=== PATIENT | female | born 1990 | race Caucasian/White ===

== ENCOUNTER → 2016-05-30 | Outpatient (CLI) | payer BC ==
[~2016-05-30] MED LIST: MULT-506 PO; NUVVR VAGRING
== END | disposition home or self-care (01) ==
LOC: C.PAPS 08:38
PROVIDERS: ATTEND Obstetrics & Gynecology
DX: Z01.419 Encounter for gynecological examination (general) (routine) without abnormal findings (principal)

== ENCOUNTER → 2016-06-06 | Outpatient (CLI) | payer BC, OTHER ==
[2016-06-11 03:05] LABS: CHLAMYDIA TRACH RNA*** NOT DETECTED (NOT DETECTED); GC (NEIS GONORRHOEAE)RNA** NOT DETECTED (NOT DETECTED)
== END | disposition home or self-care (01) ==
LOC: C.LABSPEC 14:44
PROVIDERS: ATTEND Obstetrics & Gynecology
DX: Z11.3 Encounter for screening for infections with a predominantly sexual mode of transmission (principal)

== ENCOUNTER → 2016-07-26 | Day surgery (SDC) | payer BC ==
[2016-07-25 11:18] VITALS: Ht 152.4 cm; Wt 56.8 kg
[~2016-07-26] VITALS: Ht 152.4 cm; Wt 56.8 kg
[~2016-07-26] MED LIST changes: +LIDOCAINE HCL 2% 2 ML VIAL (20MG/ML) ONE; +PROPOFOL IV EMULSION 10 MG/ML 20 ML VIAL IV ONE
--- NOTE | 2016-07-26 13:40 | Endo History and Physical ---
History & Physical Date of Service: Jul 26, 2016. Chief Complaint: blood in stool Referring Physician: JEN Charles History of Present Illness 25 yo CF who presents for colonoscopy secondary to blood in stool. Past Surgical History Hx Cardiac Surgery: No Hx Internal Defibrillator: No Hx Pacemaker: No Hx Abdominal Surgery: No Hx of Implantable Prosthesis: No Hx Post-Op Nausea and Vomiting: No Hx Cancer Surgery: No Hx Thoracic Surgery: No Hx Orthopedic: No Hx Urinary Tract Surgery: No Family History None Social History Smoking Status: Never Smoker Hx Substance Use: No Hx Alcohol Use: Yes (3 GLASSES/WEEK) Allergies Coded Allergies: No Known Allergies (Verified , 07/26/16) Current Medications Reported Home Medications Medications Dose Route/Sig Max Daily Dose Days Date Category Multivitamin (Multivitamins) Tab 1 Tab PO DAILY 07/25/16 Reported Nuvaring (Ethinyl Estradiol) Mis 1 Ea VAGRING MONTHLY 07/25/16 Reported Vital Signs Weight (Kilograms): 56.82 Height (Feet): 5 Height (Inches): 0 Date Time Temp Pulse Resp B/P Pulse Ox O2 Delivery O2 Flow Rate FiO2 07/26/16 13:06 37.4 71 16 135/59 100 Room Air Physical Exam General Appearance: WD/WN, no apparent distress Respiratory/Chest: Auscultation: breath sounds normal Cardiovascular: Heart Auscultation: RRR Abdomen: Bowel Sounds: normal Inspection & Palpation: soft, non-distended, no tenderness, guarding & rebound Assessment and Plan Assessment: 25 yo CF who presents for colonoscopy secondary to blood in stool. Plan: Proceed with colonoscopy.
--- NOTE | 2016-07-26 14:03 | Discharge Instructions ---
Endoscopy Patient Instructions Date / Procedure(s) Performed Jul 26, 2016. Colonoscopy Allergy Information Coded Allergies: No Known Allergies (Verified , 07/26/16) Discharge Date / Findings Jul 26, 2016. Terminal ileitis s/p biopsies Internal hemorrhoids Medication Instructions Stopped Medication(s): stopped MVI 2 weeks ago OK to resume all medications today as prescribed. Reported Home Medications Medications Dose Route/Sig Max Daily Dose Days Date Category Multivitamin (Multivitamins) Tab 1 Tab PO DAILY 07/25/16 Reported Nuvaring (Ethinyl Estradiol) Mis 1 Ea VAGRING MONTHLY 07/25/16 Reported Provider Instructions Activity Restrictions - No exercising or heavy lifting for 24 hours. - Do not drink alcohol the day of the procedure. - Do not drive a car or operate machinery until the day after the procedure. - Do not make any important decisions or sign important papers in 24 hours after the procedure. Following Day: - Return to full activity which may include returning to work/school. Diet Start your diet with liquids and light foods (jello, soup, juice, toast). Then eat your usual diet if not nauseated. Treatment For Common After Affects For mild abdominal pain, bloating, or excessive gas: - Rest - Eat lightly - Lie on right side Follow-Up Information Follow-up with no PCP assigned as scheduled Anesthesia Information What You Should Know You have had a procedure that required some medicine to reduce anxiety and discomfort. This treatment is called moderate sedation. After receiving the treatment, you may be sleepy, but you will be able to breathe on your own. The effects of the treatment may last for several hours. Follow these instructions along with Activity/Diet recommendations noted above: * Do NOT do anything where dizziness or clumsiness would be dangerous. * Rest quietly at home today, then you can be up and about tomorrow. * Have a responsible person stay with you the rest of today. * You may have had an I.V. today. If so, you may take the dressing off later today. Recommendations Call your doctor if: * Trouble breathing * Continuous vomiting for more than 24 hours * Temperature above 101 degrees * Severe abdominal pain or bloating * Pain not relieved by pain medicine ordered * There is increased drainage or redness from any incision * A large amount of rectal bleeding greater than 2-3 tablespoons. (If you had a polyp/s removed or have hemorrhoids, a small amount of blood - from the rectum is to be expected.) * You have any unanswered questions or concerns. IN THE EVENT OF A SERIOUS EMERGENCY, GO TO THE NEAREST EMERGENCY ROOM Your discharge instructions were prepared by provider Jonn Cotton. Patient Instructions Signature Page Jania Sotomayor Patient (or Guardian) Signature/Date: I have read and understand the instructions given to me by my caregivers. Caregiver/RN/Doctor Signature/Date: The above-named patient and/or guardian has received patient instructions on this date. + Original Patient Signature Page (only) stays with chart. Please make copy for patient.
[2016-07-26 14:34] VITALS: BP 110/55; PULSE 64; O2SAT 100
--- NOTE | 2016-07-26 15:19 | GI REPORT ---
Procedure Date: 07/26/2016 1:36 PM Procedure: Colonoscopy Indications: Rectal bleeding Medicines: Monitored Anesthesia Care Complications: No immediate complications. Estimated Blood Loss: Estimated blood loss: none. Procedure: Pre-Anesthesia Assessment: - Prior to the procedure, a History and Physical was performed, and patient medications and allergies were reviewed. The patient's tolerance of previous anesthesia was also reviewed. The risks and benefits of the procedure and the sedation options and risks were discussed with the patient. All questions were answered, and informed consent was obtained. Prior Anticoagulants: The patient has taken no previous anticoagulant or antiplatelet agents. ASA Grade Assessment: I - A normal, healthy patient. After reviewing the risks and benefits, the patient was deemed in satisfactory condition to undergo the procedure. After I obtained informed consent, the scope was passed under direct vision. Throughout the procedure, the patient's blood pressure, pulse, and oxygen saturations were monitored continuously. The scope was introduced through the anus and advanced to the terminal ileum. The colonoscopy was performed without difficulty. The patient tolerated the procedure well. The quality of the bowel preparation was good. The terminal ileum, ileocecal valve, appendiceal orifice, and rectum were photographed. Findings: The terminal ileum contained multiple three mm ulcers. No bleeding was present. Biopsies were taken with a cold forceps for histology. Non-bleeding internal hemorrhoids were found during retroflexion. The hemorrhoids were small. Impression: - Multiple ulcers in the terminal ileum. Biopsied. - Non-bleeding internal hemorrhoids. Recommendation: - Resume previous diet. - Continue present medications. - Repeat colonoscopy for surveillance based on pathology results. - Return to primary care physician as previously scheduled. Jonn Cotton, 07/26/2016 2:06:43 PM This report has been signed electronically. Note Initiated On: 07/26/2016 1:36 PM I attest to the content of the Intraoperative Record and orders documented therein, exceptions below
--- NOTE | 2016-07-26 15:36 | Anesthesiology Progress Note ---
Anesthesia Post Op Note Date & Time Jul 26, 2016 at 15:35 Vital Signs Pain Intensity: 0 Vital Signs Past 12 Hours Date Time Temp Pulse Resp B/P Pulse Ox O2 Delivery O2 Flow Rate FiO2 07/26/16 14:34 64 16 110/55 100 Room Air 07/26/16 14:17 82 16 108/57 100 Room Air 07/26/16 14:02 62 16 106/60 98 Room Air 07/26/16 13:06 37.4 71 16 135/59 100 Room Air Notes Mental Status: alert / awake / arousable Nausea / Vomiting: adequately controlled Pain: adequately controlled Airway Patency, RR, SpO2: stable & adequate BP & HR: stable & adequate Hydration State: stable & adequate Anesthetic Complications: no major complications apparent
== END | disposition home or self-care (01) ==
LOC: C.GI 12:37
PROVIDERS: ATTEND Internal Medicine
DX: K92.1 Melena (principal); K63.3 Ulcer of intestine; K64.8 Other hemorrhoids; Z98.890 Other specified postprocedural states

== ENCOUNTER → 2017-01-04 | Day surgery (SDC) | payer BC ==
[2016-12-25 10:59] VITALS: Ht 152.4 cm; Wt 56.8 kg
[~2017-01-04] VITALS: Ht 152.4 cm; Wt 56.8 kg
[~2017-01-04] MED LIST changes: +MIDAZOLAM HCL 1 MG/ML 2ML VIAL ONE
--- NOTE | 2017-01-04 12:44 | Endo History and Physical ---
History & Physical Date of Service: Jan 04, 2017. Chief Complaint: terminal ileitis Referring Physician: KEVIN ABDALLA History of Present Illness 26 yo CF who presents for colonoscopy secondary to terminal ileitis. Past Surgical History Hx Cardiac Surgery: No Hx Internal Defibrillator: No Hx Pacemaker: No Hx Abdominal Surgery: No Hx of Implantable Prosthesis: No Hx Post-Op Nausea and Vomiting: No Hx Cancer Surgery: No Hx Thoracic Surgery: No Hx Orthopedic: No Hx Urinary Tract Surgery: No Family History None Social History Smoking Status: Never Smoker Hx Substance Use: No Hx Alcohol Use: Yes (3 GLASSES/WEEK) Allergies Coded Allergies: No Known Allergies (Verified , 12/25/16) Current Medications Reported Home Medications Medications Dose Route/Sig Max Daily Dose Days Date Category Multivitamin (Multivitamins) Tab 1 Tab PO DAILY 07/25/16 Reported Nuvaring (Ethinyl Estradiol) Mis 1 Ea VAGRING MONTHLY 07/25/16 Reported Vital Signs Weight (Kilograms): 56.82 Height (Feet): 5 Height (Inches): 0 Physical Exam General Appearance: WD/WN, no apparent distress Respiratory/Chest: Auscultation: breath sounds normal Cardiovascular: Heart Auscultation: RRR Abdomen: Bowel Sounds: normal Inspection & Palpation: soft, non-distended, no tenderness, guarding & rebound Assessment and Plan Assessment: 26 yo CF who presents for colonoscopy secondary to terminal ileitis. Plan: Proceed with colonoscopy.
--- NOTE | 2017-01-04 13:39 | GI REPORT ---
Procedure Date: 01/04/2017 1:10 PM Procedure: Colonoscopy Indications: Ulcers of terminal ileum Medicines: Monitored Anesthesia Care Complications: No immediate complications. Estimated Blood Loss: Estimated blood loss: none. Procedure: Pre-Anesthesia Assessment: - Prior to the procedure, a History and Physical was performed, and patient medications and allergies were reviewed. The patient's tolerance of previous anesthesia was also reviewed. The risks and benefits of the procedure and the sedation options and risks were discussed with the patient. All questions were answered, and informed consent was obtained. Prior Anticoagulants: The patient has taken no previous anticoagulant or antiplatelet agents. ASA Grade Assessment: II - A patient with mild systemic disease. After reviewing the risks and benefits, the patient was deemed in satisfactory condition to undergo the procedure. After I obtained informed consent, the scope was passed under direct vision. Throughout the procedure, the patient's blood pressure, pulse, and oxygen saturations were monitored continuously. The Scope was introduced through the anus and advanced to the terminal ileum. The colonoscopy was performed without difficulty. The patient tolerated the procedure well. The quality of the bowel preparation was good. The terminal ileum, ileocecal valve, appendiceal orifice, and rectum were photographed. Findings: The terminal ileum contained multiple three mm ulcers. No bleeding was present. Biopsies were taken with a cold forceps for histology. The colon (entire examined portion) appeared normal. Several random biopsies were obtained with cold forceps for histology in the entire colon. Impression: - Multiple ulcers in the terminal ileum. Biopsied. - The entire examined colon is normal. - Several random biopsies were obtained in the entire colon. Recommendation: - Resume previous diet. - Continue present medications. - Repeat colonoscopy for surveillance based on pathology results. - Return to primary care physician as previously scheduled. Jonn Cotton DO 01/04/2017 1:39:04 PM This report has been signed electronically. Note Initiated On: 01/04/2017 1:10 PM I attest to the content of the Intraoperative Record and orders documented therein, exceptions below
--- NOTE | 2017-01-04 13:52 | Anesthesiology Progress Note ---
Anesthesia Post Op Note Date & Time Jan 04, 2017 at 13:52 Vital Signs Pain Intensity: 0 Vital Signs Past 12 Hours Date Time Temp Pulse Resp B/P (MAP) Pulse Ox O2 Delivery O2 Flow Rate FiO2 01/04/17 13:50 58 16 116/64 (81) 98 Room Air 01/04/17 13:35 99 13 122/61 (81) 97 Nasal Cannula 3 01/04/17 12:50 37.9 76 16 126/65 (85) 100 Room Air Notes Mental Status: alert / awake / arousable, participated in evaluation Pt Amnestic to Procedure: Yes Nausea / Vomiting: adequately controlled Pain: adequately controlled Airway Patency, RR, SpO2: stable & adequate BP & HR: stable & adequate Hydration State: stable & adequate Anesthetic Complications: no major complications apparent
--- NOTE | 2017-01-04 14:01 | Discharge Instructions ---
Endoscopy Patient Instructions Date / Procedure(s) Performed Jan 04, 2017. Colonoscopy Allergy Information Coded Allergies: No Known Allergies (Verified , 12/25/16) Discharge Date / Findings Jan 04, 2017. Terminal ileitis s/p biopsies Random colon biopsies Medication Instructions OK to resume all medications today as prescribed Reported Home Medications Medications Dose Route/Sig Max Daily Dose Days Date Category Multivitamin (Multivitamins) Tab 1 Tab PO DAILY 07/25/16 Reported Nuvaring (Ethinyl Estradiol) Mis 1 Ea VAGRING MONTHLY 07/25/16 Reported Provider Instructions Activity Restrictions - No exercising or heavy lifting for 24 hours. - Do not drink alcohol the day of the procedure. - Do not drive a car or operate machinery until the day after the procedure. - Do not make any important decisions or sign important papers in 24 hours after the procedure. Following Day: - Return to full activity which may include returning to work/school. Diet Start your diet with liquids and light foods (jello, soup, juice, toast). Then eat your usual diet if not nauseated. Treatment For Common After Affects For mild abdominal pain, bloating, or excessive gas: - Rest - Eat lightly - Lie on right side Follow-Up Information Follow-up with KEVIN ABDALLA as scheduled Anesthesia Information What You Should Know You have had a procedure that required some medicine to reduce anxiety and discomfort. This treatment is called moderate sedation. After receiving the treatment, you may be sleepy, but you will be able to breathe on your own. The effects of the treatment may last for several hours. Follow these instructions along with Activity/Diet recommendations noted above: * Do NOT do anything where dizziness or clumsiness would be dangerous. * Rest quietly at home today, then you can be up and about tomorrow. * Have a responsible person stay with you the rest of today. * You may have had an I.V. today. If so, you may take the dressing off later today. Recommendations Call your doctor if: * Trouble breathing * Continuous vomiting for more than 24 hours * Temperature above 101 degrees * Severe abdominal pain or bloating * Pain not relieved by pain medicine ordered * There is increased drainage or redness from any incision * A large amount of rectal bleeding greater than 2-3 tablespoons. (If you had a polyp/s removed or have hemorrhoids, a small amount of blood - from the rectum is to be expected.) * You have any unanswered questions or concerns. IN THE EVENT OF A SERIOUS EMERGENCY, GO TO THE NEAREST EMERGENCY ROOM Your discharge instructions were prepared by provider Jonn Cotton. Patient Instructions Signature Page Jania Sotomayor Patient (or Guardian) Signature/Date: I have read and understand the instructions given to me by my caregivers. Caregiver/RN/Doctor Signature/Date: The above-named patient and/or guardian has received patient instructions on this date. + Original Patient Signature Page (only) stays with chart. Please make copy for patient.
[2017-01-04 14:05] VITALS: BP 117/63; PULSE 60; O2SAT 98
== END | disposition home or self-care (01) ==
LOC: C.GI 12:17
PROVIDERS: ATTEND Internal Medicine
DX: K50.00 Crohn's disease of small intestine without complications (principal); K63.3 Ulcer of intestine

== ENCOUNTER → 2017-06-11 | Outpatient (CLI) | payer OTHER ==
[~2017-06-11] MED LIST changes: -LIDOCAINE HCL 2% 2 ML VIAL (20MG/ML) ONE; -MIDAZOLAM HCL 1 MG/ML 2ML VIAL ONE; -PROPOFOL IV EMULSION 10 MG/ML 20 ML VIAL IV ONE
== END | disposition home or self-care (01) ==
LOC: C.PAPS 10:04
PROVIDERS: ATTEND Physician Assistant
DX: Z01.419 Encounter for gynecological examination (general) (routine) without abnormal findings (principal)